=== PATIENT | male | born 2000 | race Two or more races ===

== ENCOUNTER 2021-01-09 20:26 | Emergency (ER) | payer BC, MEDICAID ==
[~2021-01-09] VITALS: Ht 149.9 cm; Wt 38.6 kg
[2021-01-09 20:50] VITALS: BP 121/28
== END 2021-01-10 00:28 | disposition home or self-care (01) ==
LOC: ER 20:29
DX: J06.9 Acute upper respiratory infection, unspecified (principal); M41.9 Scoliosis, unspecified; Z20.822 Contact with and (suspected) exposure to COVID-19
CPT/HCPCS: 36415; 71045; 87426; 99284; C9803; U0003